=== PATIENT | male | born 1965 | race Caucasian/White ===

== ENCOUNTER → 2018-03-22 | Outpatient (REF) | payer OTHER ==
[~2018-03-22] MED LIST: ACET-1966 PO; ASPI81TA86 PO; ATOR20TA65 PO; DOCO1CAP17 PO; IBUP200C71 PO; INSU100V24 SQ; MULT-1335 PO; NOVOLOG SUBQ
== END ==
LOC: ZZSENDIN 12:00
PROVIDERS: ATTEND Family Medicine
DX: L57.0 Actinic keratosis (principal)
CPT/HCPCS: 88305

== ENCOUNTER → 2018-07-05 | Outpatient (REF) | payer OTHER ==
[~2018-07-05] MED LIST changes: +IBUP-136 PO; -IBUP200C71 PO
[2018-07-05 20:27] LABS: PLATELET COUNT, AUTOMATED 280 K/uL (150-450)
== END ==
PROVIDERS: ATTEND Nurse Practitioner Family
DX: R10.9 Unspecified abdominal pain (principal)
CPT/HCPCS: 82040; 82150; 82247; 82310; 82374; 82435; 82565; 82947; 83690; 84075; 84132; 84155; 84295; 84450; 84460; 84520; 85025; 85651; 86140